=== PATIENT | female | born 1990 | race Caucasian/White ===

== ENCOUNTER 2017-08-25 15:57 | Emergency (ER) | payer OTHER ==
[~2017-08-25] VITALS: Ht 167.6 cm; Wt 71.9 kg
[2017-08-25] MEDS ORDERED: FIORICET,ESG1 TABLET PO (18:28)
[2017-08-25] MEDS ORDERED: ZOFRAN ODT4 MG PO (18:29)
[2017-08-25] MEDS ORDERED: ATARAX,VISTARIL50 MG PO (21:42)
[2017-08-25 22:10] VITALS: BP 136/80
== END 2017-08-25 22:13 | disposition home or self-care (01) ==
LOC: EME 15:57 → EXP 15:57
DX: G43.909 Migraine, unspecified, not intractable, without status migrainosus (principal)
CPT/HCPCS: 99281; 99285; J1100; J1200; J1885; J2060; J2405; J7030; J7050; Q0177